=== PATIENT | male | born 1960 | race American Indian/Alaskan Native ===

== ENCOUNTER 2022-01-14 06:47 | Day surgery (SDC) | payer MEDICARE ==
[2022-01-13 09:56] LABS: Alanine Aminotransferase 8 units/L (7-56); Albumin 4.1 g/dL (3.9-5); BUN/Creatinine Ratio 13; Blood Urea Nitrogen 13 mg/dL (9-20); Calcium 9.4 mg/dL (8.4-10.2); Hemolysis Index 2
[2022-01-13 10:10] LABS: Hemoglobin 12.9 gm/dl (11.8-15.2); Mean Corpuscular HGB Conc 34 % (32-34); Mean Corpuscular Volume 91 fl (84-94); Platelet Count 177 K/mm3 (140-440); Red Blood Count 4.18 M/mm3 (3.65-5.03); Red Cell Distribution Width 13.9 % (13.2-15.2)
[~2022-01-14 06:47] MED LIST: LACTATED RINGERS 1,000 ML IV SCH
[2022-01-14] MEDS ORDERED: HYDROcodone/ACETAMINOPHEN 5-325 MG TAB PO PRN (07:34)
[2022-01-14] MEDS ORDERED: fentaNYL 100 MCG/2 ML INJ IV PRN (07:34)
[2022-01-14] MEDS ORDERED: ONDANSETRON 4 MG/2 ML INJ IV PRN (07:34)
--- NOTE | 2022-01-14 07:34 | Anesthesia Consultation ---
Anesthesia Consult and Med Hx Date of service: 01/14/22 - Airway Anesthetic Teeth Evaluation: Poor (loose #9, evidence of decay) ROM Head & Neck: Adequate Mental/Hyoid Distance: Adequate Mallampati Class: Class III Intubation Access Assessment: Possibly Difficult - Pre-Operative Health Status ASA Pre-Surgery Classification: ASA3 Proposed Anesthetic Plan: General - Pulmonary Hx Smoking: Yes (former smoker quit 26yrs ago) Hx Respiratory Symptoms: No Hx Sleep Apnea: Yes (not yet started on CPAP) - Cardiovascular System Hx Hypertension: Yes Hx Heart Attack/AMI: No Hx Percutaneous Transluminal Coronary Angioplasty (PTCA): No Hx Cardia Arrhythmia: No - Central Nervous System CVA: No Hx Back Pain: Yes - Endocrine Hx Renal Disease: No Hx Liver Disease: No Hx Non-Insulin Dependent Diabetes: Yes Hx Thyroid Disease: No - Other Systems Hx Obesity: Yes (BMI 45) - Additional Comments Anesthesia Medical History Comments: No hx anesthetic complications.
--- NOTE | 2022-01-14 07:34 | Anesthesia Day of Surgery ---
Anesthesia Day of Surgery - Day of Surgery Patient Examined: Yes Patient H&P Reviewed: Yes Patient is NPO: Yes Beta Blockers: Yes
[2022-01-14] MEDS ORDERED: carvediloL 25 MG TAB PO SCH (08:00)
[2022-01-14] MEDS ORDERED: GENTAMICIN/NS 80 MG/100 ML 100 ML IV SCH (08:00)
[2022-01-14] MEDS ORDERED: propofoL 200 MG/20 ML VIAL IV ONE ×2 (09:27)
[2022-01-14] MEDS ORDERED: WATER FOR IRRIG STERILE 2000 ML IR ONE (09:40)
[2022-01-14] MEDS ORDERED: PHENYLEPHRINE/NS 1,000 MCG/10 ML SYRINGE (OR USE) IV ONE (09:58)
[2022-01-14] MEDS ORDERED: LIDOCAINE MPF (2%) 20 MG/1 ML VIAL 5 ML ONE (09:58)
[2022-01-14] MEDS ORDERED: dexAMETHasone 20 MG/5 ML VIAL ONE (09:58)
[2022-01-14] MEDS ORDERED: ONDANSETRON 4 MG/2 ML INJ ONE (09:58)
--- NOTE | 2022-01-14 10:11 | Short Stay Summary ---
Short Stay Documentation Date of service: 01/14/22 - History H&P: obtained from office - Allergies and Medications Current Medications: Allergies No Known Allergies Allergy (Unverified 01/12/22 11:22) Home Medications Medication Instructions Recorded Confirmed Last Taken Type AtorvaSTATin [Lipitor] 20 mg PO QHS 01/12/22 01/12/22 Unknown History Cholecalciferol (Vitamin D3) 25 mcg PO DAILY 01/12/22 01/12/22 Unknown History [Vitamin D3] Dapagliflozin Propanediol [Farxiga] 10 mg PO DAILY 01/12/22 01/12/22 Unknown History Furosemide [Lasix] 20 mg PO QDAY 01/12/22 01/12/22 Unknown History Sacubitril/Valsartan 49 mg PO BID 01/12/22 01/12/22 Unknown History Spironolactone [Aldactone] 25 mg PO QDAY 01/12/22 01/12/22 Unknown History Tamsulosin [Flomax] 0.4 mg PO QDAY 01/12/22 01/12/22 Unknown History allopurinoL 25 mg PO DAILY 01/12/22 01/12/22 Unknown History carvediloL [Coreg] 25 mg PO BID 01/12/22 01/12/22 Unknown History metFORMIN [Glucophage] 500 mg PO BID 01/12/22 01/12/22 Unknown History Active Medications Hydrocodone Bitart/Acetaminophen (Hydrocodone/Acetaminophen 5-325 Mg Tab) 2 each PO ONCE PRN PRN Reason: Pain, Moderate (4-6) Stop: 01/14/22 18:00 Carvedilol (Carvedilol 25 Mg Tab) 25 mg PO ONCE@0800 [facility] Stop: 01/14/22 17:00 Last Admin: 01/14/22 08:25 Dose: 25 mg Fentanyl (Fentanyl 100 Mcg/2 Ml Inj) 50 mcg IV Q5MIN PRN PRN Reason: Pain , Severe (7-10) Stop: 01/14/22 18:00 Lactated Ringer's (Lactated Ringers) 1,000 mls @ 100 mls/hr IV DIRECT LUIGI Stop: 01/14/22 23:59 Last Admin: 01/14/22 07:59 Dose: 100 mls/hr Gentamicin Sulfate/Sodium Chloride (Gentamicin/Ns 80 Mg/100 Ml) 100 mls @ 200 mls/hr IV PREOP LUIGI; Protocol Stop: 01/14/22 17:00 Cefazolin Sodium 3 gm/ Sodium (Chloride) 100 mls @ 100 mls/30 min IV PREOP LUIGI; Protocol Stop: 01/14/22 17:00 Ondansetron HCl (Ondansetron 4 Mg/2 Ml Inj) 4 mg IV ONCE PRN PRN Reason: Nausea And Vomiting Stop: 01/14/22 18:00 - Brief post op/procedure progress note Date of procedure: 01/14/22 Pre-op diagnosis: bph, psa 9 Post-op diagnosis: same Procedure: cysto, rpg, pus (76 cc), bx of prostate Anesthesia: GETA Surgeon: TIFFANY TRINH Estimated blood loss: minimal Pathology: list (prostate cores) Specimen disposition: to lab Condition: stable - Hospital course Hospital course: bactrim & norco on chart - Disposition Condition at discharge: Stable Disposition: 01 HOME / SELF CARE / HOMELESS Short Stay Discharge Plan Follow up with: DR SAGRARIO [Other] - 7 Days
--- NOTE | 2022-01-14 10:46 | Ultrasound Report ---
Transrectal Ultrasound HISTORY: ELEVATED PSA. TECHNIQUE: Grayscale and color Doppler imaging performed. COMPARISON: None FINDINGS: Transrectal ultrasound guidance was provided by radiology during prostate biopsy by urology . Prostate volume measures 76.1 cc. IMPRESSION: Successful prostate biopsy under ultrasound guidance Signer Name: Sammy Evans Jr, MD Signed: 01/14/2022 10:41 AM Workstation Name: [id number]
--- NOTE | 2022-01-14 10:53 | Fluoroscopy Report ---
FLUOROSCOPY RETROGRADE UROGRAPHY HISTORY: Elevated PSA FINDINGS: Fluoroscopy was provided by radiology during retrograde urography by the urologist. There i s normal filling of both renal collecting systems. No filling defect or abnormal dilatation is identi fied. IMPRESSION: Unremarkable bilateral retrograde pyelograms Fluoroscopy time: 5 seconds Fluoroscopic images: 5 Signer Name: Sammy Evans Jr, MD Signed: 01/14/2022 10:49 AM Workstation Name: [id number]
--- NOTE | 2022-01-14 11:16 | Operative Report ---
DATE OF SURGERY: 01/14/2022 PREOPERATIVE DIAGNOSES: Elevated prostate-specific antigen of 9, benign prostatic hypertrophy. POSTOPERATIVE DIAGNOSES: Elevated prostate-specific antigen of 9, benign prostatic hypertrophy. PROCEDURES: Cystoscopy, bilateral retrograde pyelograms, transrectal ultrasound (76 grams) and biopsy of prostate. SURGEON: Nickolas Stevenson MD ANESTHESIA: General. ESTIMATED BLOOD LOSS: Minimal. FLUIDS: Crystalloid. COMPLICATIONS: No complications. INDICATIONS: This patient is a 61-year-old gentleman seen in the office with an elevated PSA of 9. Discussed options, he agreed to proceed with surgical intervention. Also, has some voiding dysfunction; however, he is on Lasix. Risks, benefits, complications were explained. Written information was given. DESCRIPTION OF PROCEDURE: The patient was taken to the operative suite, placed in a supine position. After adequate general anesthesia, placed in the dorsal lithotomy position, prepped and draped in a sterile fashion. Lazaro-cystourethroscopy was performed with a 22-Burkinan Storz cystoscope, no urethral abnormalities. His prostate displayed mild lateral obstruction. He did have a high riding bladder neck. Bladder, no tumors or stones. Both ureteral orifices in normal position. Bilateral retrograde pyelograms were obtained with an 8-Burkinan Gonvick catheter and 8 mL of contrast. No filling defects or obstruction. He did have some distal J hooking of the ureters. Using a transrectal prostate ultrasound, sagittal and transverse imaging were obtained. No suspicious lesions could be appreciated, 76 gram gland was noted. A template biopsy taking 4 cores at the base, mid and apex of the prostate on the left and right side. The patient tolerated the procedure well. Rectal exam was benign. He was extubated and taken to recovery room. He will go home on Bactrim and Hope. TID: [id number] RECEIPT: [id number] ALEYDA/MANUEL/MARINO
--- NOTE | 2022-01-14 11:32 | Post Anesthesia Evaluation ---
- Post Anesthesia Evaluation Patient Participated: Yes Airway Patent: Yes Stable Respiratory Function: Yes Nausea/Vomiting: No Temp > 96.8F: Yes Pain Manageable: Yes Adequeate Hydration: Yes Anesthesia Complications: No
[2022-01-14 19:10] VITALS: BP 137/86
== END 2022-01-14 11:10 | disposition home or self-care (01) ==
LOC: OR 06:47
PROVIDERS: ATTEND Urology
DX: R97.20 Elevated prostate specific antigen [PSA] (principal); N40.0 Benign prostatic hyperplasia without lower urinary tract symptoms; E78.00 Pure hypercholesterolemia, unspecified; I10 Essential (primary) hypertension; K21.9 Gastro-esophageal reflux disease without esophagitis; E66.9 Obesity, unspecified; M19.90 Unspecified osteoarthritis, unspecified site; E11.9 Type 2 diabetes mellitus without complications; Z79.899 Other long term (current) drug therapy; Z20.822 Contact with and (suspected) exposure to COVID-19; Z79.84 Long term (current) use of oral hypoglycemic drugs; Z87.891 Personal history of nicotine dependence; Z72.89 Other problems related to lifestyle; Z98.890 Other specified postprocedural states; Z68.42 Body mass index [BMI] 45.0-49.9, adult
CPT/HCPCS: 36415; 52005; 55700; 74420; 76872; 80053; 82962; 85027; 88305; J0690; J1100; J1580; J2370; J2405; J2704; J3490; J7120; Q9967; U0003; C1758